=== PATIENT | female | born 2000 | race Caucasian/White ===

== ENCOUNTER 2020-10-23 04:20 | Outpatient (CLI) | payer OTHER ==
[~2020-10-23 04:20] MED LIST: FEOSOL325 MG PO; FOLIC ACID0.4 MG PO; PRENATAL VITAM1 EAC3 PO; PROZAC20 MG PO; ZANTAC 7575 MG PO
[2020-10-23 06:06] LABS: HEMOGLOBIN 9.7 gm/dl (12.3-15.3); RED BLOOD COUNT 3.85 M/UL (4.00-5.10); WHITE BLOOD COUNT 7.6 K/UL (4.5-11.0)
[2020-10-25 07:11] LABS: HEP B CORE AB, IGM Negative (Negative); RUBELLA ANTIBODIES, IGG 6.31 index (Immune >0.99)
[2020-10-25 14:20] LABS: TREPONEMA PALLIDUM ANTIBODIES Non Reactive (Non Reactive)
== END 2020-10-23 09:50 | disposition home or self-care (01) ==
LOC: GENOP 04:20
PROVIDERS: Obstetrics & Gynecology
DX: O42.913 Preterm premature rupture of membranes, unspecified as to length of time between rupture and onset of labor, third trimester (principal); O99.891 Other specified diseases and conditions complicating pregnancy; Z3A.32 32 weeks gestation of pregnancy; M54.9 Dorsalgia, unspecified; R10.9 Unspecified abdominal pain; O34.219 Maternal care for unspecified type scar from previous cesarean delivery; O99.333 Smoking (tobacco) complicating pregnancy, third trimester; F17.210 Nicotine dependence, cigarettes, uncomplicated; O99.343 Other mental disorders complicating pregnancy, third trimester; F41.9 Anxiety disorder, unspecified; O99.323 Drug use complicating pregnancy, third trimester; F15.90 Other stimulant use, unspecified, uncomplicated; F12.90 Cannabis use, unspecified, uncomplicated; Z20.822 Contact with and (suspected) exposure to COVID-19
CPT/HCPCS: 80307; 81001; 83518; 85025; 86705; 86762; 86780; 86900; 86901; 96365; 96366; J0610; J0702; J3105; J3475; U0002